=== PATIENT | female | born 1970 | race African-American/Black ===

== ENCOUNTER 2019-09-06 11:18 | Emergency (ER) | payer OTHER, SELFPAY ==
[2019-09-06 13:05] LABS: ALT/SGPT 20 U/L (12-78); AST/SGOT 12 U/L (15-37); Albumin 3.4 g/dL (3.4-5.0); Alkaline Phosphatase 71 U/L (45-117); BUN Blood Urea Nitrogen 6 mg/dL (7-18); Bicarbonate 26 mmol/L (21-32); Bilirubin Direct < 0.1 mg/dL (0-0.2); Bilirubin Total 0.4 mg/dL (0.2-1.0); Glucose Level 107 mg/dL (74-106); Lipase 50 U/L (73-393); Potassium 3.6 mmol/L (3.5-5.1); Protein, Total 7.4 g/dL (6.4-8.2); Sodium Level 139 mmol/L (136-145)
[2019-09-06 13:23] LABS: Absolute Lymphocytes (CBC) 1.8 K/uL (0.7-4.9); Lymphocytes % 38.6 % (15.3-44.8); MPV 10.5 fL (7.6-11.3); RBC Red Blood Cell Count 4.73 M/uL (3.86-4.86)
--- NOTE | 2019-09-06 14:08 | EDPHYS ---
Physician Documentation [facility] Name: Kaity Akhtar Age: 49 yrs Sex: Female : 1970 Arrival Date: 09/06/2019 Time: 11:24 Bed 13 Private MD: None, None ED Physician José Mcknight HPI: 09/05 15:54 This 49 yrs old Black Female presents to ER via Ambulatory with complaints of Body kb aches, Asthma Exacerbation. 15:54 The patient presents with abdominal pain. Onset: The symptoms/episode began/occurred kb this morning. The symptoms do not radiate. Associated signs and symptoms: Pertinent positives: sore throat, back pain, Pertinent negatives: nausea, vomiting, and diarrhea, fever. The symptoms are described as constant. Modifying factors: The symptoms are alleviated by nothing, the symptoms are aggravated by nothing. Severity of pain: At its worst the pain was moderate in the emergency department the pain is unchanged. The patient has not experienced similar symptoms in the past. The patient has not recently seen a physician. Pt reports abd pain, right mid back pain and sore throat that started this morning. denies fever, cough, shortness of breath. 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 - Social history:: Smoking status: Patient denies any tobacco usage or history of. ROS: 15:51 Neck: Negative for injury, pain, and swelling, Cardiovascular: Negative for chest pain, kb palpitations, and edema, Respiratory: Negative for shortness of breath, cough, wheezing, and pleuritic chest pain, : Negative for injury, bleeding, discharge, and swelling, MS/Extremity: Negative for injury and deformity, Skin: Negative for injury, rash, and discoloration, Neuro: Negative for headache, weakness, numbness, tingling, and seizure. 15:51 Constitutional: Positive for body aches, Negative for chills, fatigue, fever, malaise, poor PO intake, weight loss. 15:51 ENT: Positive for sore throat. 15:51 Abdomen/GI: Positive for abdominal pain, Negative for nausea, vomiting, and diarrhea, constipation. 15:51 Back: Positive for pain at rest, pain with movement, of the right mid back. Exam: 15:51 Constitutional: This is a well developed, well nourished patient who is awake, alert, kb and in no acute distress. Head/Face: Normocephalic, atraumatic. ENT: Nares patent. No nasal discharge, no septal abnormalities noted. Tympanic membranes are normal and external auditory canals are clear. Oropharynx with no redness, swelling, or masses, exudates, or evidence of obstruction, uvula midline. Mucous membranes moist. Neck: Trachea midline, no thyromegaly or masses palpated, and no cervical lymphadenopathy. Supple, full range of motion without nuchal rigidity, or vertebral point tenderness. No Meningismus. Chest/axilla: Normal chest wall appearance and motion. Nontender with no deformity. No lesions are appreciated. Cardiovascular: Regular rate and rhythm with a normal S1 and S2. No gallops, murmurs, or rubs. Normal PMI, no JVD. No pulse deficits. Respiratory: Lungs have equal breath sounds bilaterally, clear to auscultation and percussion. No rales, rhonchi or wheezes noted. No increased work of breathing, no retractions or nasal flaring. Skin: Warm, dry with normal turgor. Normal color with no rashes, no lesions, and no evidence of cellulitis. MS/ Extremity: Pulses equal, no cyanosis. Neurovascular intact. Full, normal range of motion. Neuro: Awake and alert, GCS 15, oriented to person, place, time, and situation. Cranial nerves II-XII grossly intact. Motor strength 5/5 in all extremities. Sensory grossly intact. Cerebellar exam normal. Normal gait. 15:51 Abdomen/GI: Inspection: abdomen appears normal, Bowel sounds: normal, in all quadrants, Palpation: soft, in all quadrants, mild abdominal tenderness, in all quadrants. 15:51 Back: pain, that is moderate, of the right mid back. Vital Signs: 11:33 BP 142 / 93; Pulse 85; Resp 16; Temp 97.7; Pulse Ox 100% on R/A; Weight 95.25 kg; ss Height 5 ft. 5 in. (165.10 cm); Pain 8/10; 12:37 BP 136 / 87; Pulse 75; Resp 17 S; Pulse Ox 97% on R/A; ca1 13:30 BP 125 / 85; Pulse 66; Resp 17 S; Pulse Ox 99% on R/A; ca1 11:33 Body Mass Index 34.95 (95.25 kg, 165.10 cm) ss MDM: 11:29 Patient medically screened. kb 15:53 Data reviewed: vital signs, nurses notes. Data interpreted: Pulse oximetry: on room air kb is 99 %. Interpretation: normal. Counseling: I had a detailed discussion with the patient and/or guardian regarding: the historical points, exam findings, and any diagnostic results supporting the discharge/admit diagnosis, lab results, the need for outpatient follow up, a family practitioner, to return to the emergency department if symptoms worsen or persist or if there are any questions or concerns that arise at home. 09/05 12:17 Order name: Flu; Complete Time: 13:04 kb 09/05 12:17 Order name: Strep; Complete Time: 13:04 kb 09/05 12:17 Order name: Basic Metabolic Panel; Complete Time: 13:05 kb 09/05 12:17 Order name: CBC with Diff; Complete Time: 13:30 kb 09/05 12:17 Order name: Hepatic Function; Complete Time: 13:05 kb 09/05 12:17 Order name: Lipase; Complete Time: 13:05 kb 09/05 12:17 Order name: IV Saline Lock; Complete Time: 12:38 kb 09/05 12:17 Order name: Labs collected and sent; Complete Time: 12:38 kb 09/05 13:03 Order name: Throat Culture EDMS Administered Medications: No medications were administered Disposition: 16:27 Co-signature as Attending Physician, José Mcknight MD I agree with the assessment and kdr plan of care. Disposition: 09/06/19 14:07 Discharged to Home. Impression: Generalized abdominal pain. - Condition is Stable. - Discharge Instructions: Abdominal Pain, Adult, [id number]. - Medication Reconciliation Form, Thank You Letter, Antibiotic Education, Prescription Opioid Use, Work release form form. - Follow up: Emergency Department; When: As needed; Reason: Worsening of condition. Follow up: Private Physician; When: 2 - 3 days; Reason: Recheck today's complaints, Continuance of care, Re-evaluation by your physician. Signatures: Dispatcher [employer] EDTemitope Sheppard, BRICKLAYER APPRENTICE-C BRICKLAYER APPRENTICE-Ckb José Mcknight MD MD [facility] Carol Ann Salgado RN RN ss Georgina Baird RN RN ca1 Corrections: (The following items were deleted from the chart) 14:17 14:07 09/06/2019 14:07 Discharged to Home. Impression: Generalized abdominal pain. ca1 Condition is Stable. Forms are Medication Reconciliation Form, Thank You Letter, Antibiotic Education, Prescription Opioid Use. Follow up: Emergency Department; When: As needed; Reason: Worsening of condition. Follow up: Private Physician; When: 2 - 3 days; Reason: Recheck today's complaints, Continuance of care, Re-evaluation by your physician. kb
--- NOTE | 2019-09-06 14:08 | ER ---
Nurse's Notes [facility] Name: Kaity Akhtar Age: 49 yrs Sex: Female : 1970 Arrival Date: 09/06/2019 Time: 11:24 Bed 13 Private MD: None, None Diagnosis: Generalized abdominal pain Presentation: 09/05 11:33 Chief complaint: Patient states: body aches and cough that began last night. Denies ss fever. Pt reports that she is out of her albuterol inhaler. Coronavirus screen: The patient has NOT traveled to a country currently being monitored by the [facility] within the last 14 days. Proceed with normal triage procedures. Ebola Screen: Patient denies exposure to infectious person. Patient denies travel to an Ebola-affected area in the 21 days before illness onset. Initial Sepsis Screen: Does the patient meet any 2 criteria? No. Patient's initial sepsis screen is negative. Does the patient have a suspected source of infection? No. Patient's initial sepsis screen is negative. Risk Assessment: Do you want to hurt yourself or someone else? Patient reports no desire to harm self or others. 11:33 Method Of Arrival: Ambulatory ss 11:33 Acuity: HOWARD 3 ca1 12:00 Onset of symptoms was September 06, 2019. 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 - Social history:: Smoking status: Patient denies any tobacco usage or history of. Screenin:43 Abuse screen: Denies threats or abuse. Denies injuries from another. Nutritional ca1 screening: No deficits noted. Tuberculosis screening: No symptoms or risk factors identified. Fall Risk None identified. Assessment: 11:43 General: Appears in no apparent distress. comfortable, Behavior is calm, cooperative, ca1 appropriate for age. General: Pt reports she has asthma and is out of albuterol neb and inhaler. Pain: Complains of pain in all over. Neuro: Level of Consciousness is awake, alert, obeys commands, Oriented to person, place, time, situation. Cardiovascular: Heart tones S1 S2 present Capillary refill < 3 seconds Patient's skin is warm and dry. Respiratory: Airway is patent Respiratory effort is even, unlabored, Respiratory pattern is regular, symmetrical, Breath sounds are clear bilaterally. Respiratory: Reports cough that is. GI: Abdomen is round non-distended, Bowel sounds present X 4 quads. Abd is soft and non tender X 4 quads. : No signs and/or symptoms were reported regarding the genitourinary system. EENT: No signs and/or symptoms were reported regarding the EENT system. Derm: Skin is intact, is healthy with good turgor, Skin is pink, warm \T\ dry. Musculoskeletal: Circulation, motion, and sensation intact. Capillary refill < 3 seconds. 12:37 Reassessment: Patient appears in no apparent distress at this time. Patient and/or ca1 family updated on plan of care and expected duration. Pain level reassessed. Patient is alert, oriented x 3, equal unlabored respirations, skin warm/dry/pink. 13:52 Reassessment: Patient appears in no apparent distress at this time. Patient and/or ca1 family updated on plan of care and expected duration. Pain level reassessed. Patient is alert, oriented x 3, equal unlabored respirations, skin warm/dry/pink. Vital Signs: 11:33 BP 142 / 93; Pulse 85; Resp 16; Temp 97.7; Pulse Ox 100% on R/A; Weight 95.25 kg; ss Height 5 ft. 5 in. (165.10 cm); Pain 8/10; 12:37 BP 136 / 87; Pulse 75; Resp 17 S; Pulse Ox 97% on R/A; ca1 13:30 BP 125 / 85; Pulse 66; Resp 17 S; Pulse Ox 99% on R/A; ca1 11:33 Body Mass Index 34.95 (95.25 kg, 165.10 cm) ED Course: 11:24 Patient arrived in ED. mr 11:24 None, None is Private Physician. mr 11:28 Temitope Akhtar FNP-C is [facility]. kb 11:28 José Mcknight MD is Attending Physician. kb 11:28 Georgina Baird, CLYDE is Primary Nurse. ca1 11:35 Triage completed. ss 11:36 Arm band placed on right wrist. ss 11:43 Patient has correct armband on for positive identification. Bed in low position. Call ca1 light in reach. Side rails up X 1. Pulse ox on. NIBP on. 11:43 No provider procedures requiring assistance completed. ca1 12:36 Initial lab(s) drawn, by me, sent to lab. Flu and/or RSV swab sent to lab. Strep swab ca1 sent to lab. Inserted saline lock: 20 gauge in right antecubital area, using aseptic technique. Blood collected. 14:17 IV discontinued, intact, bleeding controlled, No redness/swelling at site. Pressure ca1 dressing applied. Administered Medications: No medications were administered Outcome: 14:07 Discharge ordered by . alin 14:17 Discharged to home ambulatory, with significant other. ca1 14:17 Condition: stable 14:17 Discharge instructions given to patient, Instructed on discharge instructions, follow up and referral plans. Demonstrated understanding of instructions, follow-up care. 14:17 Patient left the ED. ca1 Signatures: Temitope Akhtar, CANE STRIPPER-C CANE STRIPPER-Carmela Paul mr Carol Ann Salgado RN RN ss Georgina Baird RN RN ca1 Corrections: (The following items were deleted from the chart) 14:13 11:33 Acuity: HOWARD 4 ss ca1
[2019-09-06 14:26] VITALS: TEMP 97.7
[2019-09-06 14:30] VITALS: BP 125/85; O2SAT 99
== END 2019-09-06 14:17 | disposition home or self-care (01) ==
LOC: ER 11:18
DX: R10.84 Generalized abdominal pain (principal)
CPT/HCPCS: 36415; 80048; 80076; 83690; 85025; 87070; 87081; 87804; 99283

== ENCOUNTER 2020-05-13 11:13 | Observation (INO) | payer OTHER ==
[2020-05-13 11:28] VITALS: BMI 32.4
[2020-05-13] MEDS ORDERED: INFLUENZA VACCINE (for 3y+) 0.5 ML DOSE IMVAC ONE (12:00)
[2020-05-13] MEDS ORDERED: HYDROMORPHONE HCL 0.5 MG/0.5 ML INJ IV PRN (12:24)
[2020-05-13] MEDS ORDERED: ALBUTEROL INHALER 60 PUFF/8 GM IH PRN (12:31)
[2020-05-13] MEDS ORDERED: GLUCAGON 1 MG/VIAL IM PRN (12:33)
[2020-05-13] MEDS ORDERED: D50W 25 GM/50 ML SYRINGE IV PRN (12:33)
[2020-05-13] MEDS ORDERED: NA CHLORIDE 0.9% 1,000 ML ONE (14:25)
--- NOTE | 2020-05-13 14:29 | P.CNS ---
Date of Consult: 05/13/20 PC: This 52-year-old female was admitted to the hospital with severe right upper quadrant abdominal pain for diagnosis and treatment. HPC: Patient has been known to have right upper quadrant pain and a workup was found have many small stones. This bout this consistent with that the pain is a right upper quadrant going into her back, describes as severe, causing lots of nausea. 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 No cough, wheeze, shortness of breath. Denies any palpitations. No urinary complaints O/E awake alert obviously uncomfortable at the moment HEENT: Nonicteric Chest: Chest movement equal bilateral ABD: Tender in right upper quadrant LOCO: Intact DATA: Ultrasound done previously demonstrates multiple gallstones IMPRESSION: Colilithiasis with biliary colic PLAN: I will take her the operating room for laparoscopic possible open cholecystectomy. We will also do a cholangiogram. The risks of this procedure have been discussed. The possibility of bleeding, infection, injury to bile ducts blood vessels intestines has been described. The possible need for an open and/or further surgeries and procedures was discussed. She understands and wants us to proceed.
[2020-05-13 14:54] LABS: Specific Gravity 1.015 (1.005-1.030)
[2020-05-13] MEDS ORDERED: SUCCINYLCHOLINE 20 MG/ML (10 ML) IV ONE (14:56)
[2020-05-13] MEDS ORDERED: propofoL 200 MG/20 ML VIAL IV ONE (15:01)
[2020-05-13] MEDS ORDERED: ROCURONIUM 50 MG/5 ML VIAL IV ONE (15:01)
[2020-05-13] MEDS ORDERED: MIDAZOLAM HCL 2 MG/2 ML INJ ONE (15:02)
[2020-05-13] MEDS ORDERED: FENTANYL CITR 250 MCG/5 ML ONE (15:02)
[2020-05-13] MEDS ORDERED: CEFOXITIN/SWI 1gm 1 GM/10 ML SYR ONE (15:17)
[2020-05-13] MEDS: Ringers Lactate 1,000 ML IV ONE ×2 (16:16→16:18)
[2020-05-13] MEDS: INSULIN -REGULAR HUMAN 50 UNIT/0.5 ML ML SQ SCH ×2 (16:30→21:00)
--- NOTE | 2020-05-13 16:30 | P.HP ---
Certification for Inpatient Patient admitted to: Observation With expected LOS: <2 Midnights Patient will require the following post-hospital care: None Practitioner: I am a practitioner with admitting privileges, knowledge of patient current condition, hospital course, and medical plan of care. 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 Past medical history of tobacco abuse and impaired fasting glucose. She started having right upper quadrant pain last week after eating some Fast food. she was started on medication for nausea and a ultrasound was ordered. She had multiple stones in her Gallbladder. Called the patient back this morning. She still was not tolerating PO food. Decision was made to direct admit the patient and keep her NPO and have her seen by surgery. Allergies No Known Drug Allergies Allergy (Verified 05/19/17 21:34) Unknown Home Medications: Albuterol Sulfate [Proair Hfa] 8.5 gm IH TID PRN #1 [email or web address] 05/21/17 Aspirin 1 tab PO DAILY 05/13/20 Cetirizine HCl [Zyrtec] 1 cap PO DAILY 05/13/20 Esomeprazole Magnesium [Nexium] 1 tab PO DAILY 05/13/20 Metformin ER [Glucophage ER*] 1 tab PO DAILY 05/13/20 - Past Medical/Surgical History Has patient received pneumonia vaccine in the past: No Diabetic: Yes -: Asthma -: Borderline diabetes -: Back surgery -: Benign tumor removed from left breast x2 Psychosocial/ Personal History: The patient is single. She has 3 children. She works at [employer]. - Family History Mother -: Heart disease, Diabetes Father -: Lung disease - Social History Smoking Status: Current every day smoker Alcohol use: No CD- Drugs: No Caffeine use: Yes Place of Residence: Home Review of Systems 10-point ROS is otherwise unremarkable Gastrointestinal: Nausea, Abdominal Pain Physical Examination - Vital Signs Temperature: 97.7 F Blood Pressure: 136/89 Pulse: 79 Respirations: 18 Pulse Ox (%): 100 - Physical Exam General: Alert, In no apparent distress HEENT: Atraumatic, PERRLA, Mucous membr. moist/pink, EOMI, Sclerae nonicteric Neck: Supple, 2+ carotid pulse no bruit, No LAD, Without JVD or thyroid abnormality Respiratory: Clear to auscultation bilaterally, Normal air movement Cardiovascular: Regular rate/rhythm, Normal S1 S2 Gastrointestinal: Normal bowel sounds, No tenderness Musculoskeletal: No tenderness Integumentary: No rashes Neurological: Normal gait, Normal speech, Normal strength at 5/5 x4 extr, Normal tone, Normal affect Lymphatics: No axilla or inguinal lymphadenopathy Assessment and Plan - Problems (Diagnosis) (1) Cholecystitis Current Visit: Yes Status: Acute Plan: She had her gallbladder removed. The patient had a large stone in the cbd. She will be kept overnight advance her diet as tolerated. Will see her in the morning (2) Tobacco abuse Current Visit: Yes Status: Acute Plan: will start her on a nicotine patch. (3) IFG (impaired fasting glucose) Current Visit: No Status: Acute Plan: Hold the metformin. Will check am labs on the patient Discharge Plan: Home Plan to discharge in: 24 Hours - Advance Directives Does patient have a Living Will: No Does patient have a Durable POA for Healthcare: No - Code Status/Comfort Care Code Status Assessed: No Code Status: Full Code Physician Review: Patient Assessed, Agree with Above Assessment and Plan Critical Care: No Time Spent Managing Pts Care (In Minutes): 70
[2020-05-13] MEDS ORDERED: NEOSTIGMINE 1 MG/ML -5 ML ONE (16:35)
[2020-05-13] MEDS ORDERED: GLYCOPYRROLATE 0.2 MG/ML SYR ONE (16:35)
--- NOTE | 2020-05-13 16:39 | P.OP ---
Preoperative diagnosis: Cholelithiasis, biliary colic Postoperative diagnosis: The same with adhesions Primary procedure: Laparoscopic cholecystectomy Secondary procedure: Attempted cholangiogram Other procedure(s): Lyses of adhesions around the liver Anesthesia: General Estimated blood loss: Since then seen Specimen: In gallbladder and contents Operative Technique: The patient brought to the operating room and placed supine on the table. After the induction of adequate general endotracheal anesthesia, there the abdomen was prepped with a DuraPrep solution, and she was draped in usual aseptic manner. A subumbilical incision was made. This was brought down through the skin and subcutaneous tissue. The Visiport was now used to enter the peritoneal cavity and created pneumoperitoneum to approximately 12 mm of mercury. Under direct vision a 5 mm tray trocar was placed in the upper midline, and 2 other 5 mm trocars on the right lateral side of the abdomen. We were able to visualize the right upper quadrant. The patient was placed in marked Trendelenburg and rolled to the left. See that there were adhesions of the omentum to the inferior edge of the right lobe of the liver. Adhesion gentle traction we were able dissect these off exposing a markedly distended gallbladder underneath. There was a thin film like area over the sole portion of the abdominal cavity. This Darren was taken down using blunt and sharp dissection to adequately expose the gallbladder and extrahepatic biliary tree. 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 Attention was turned back to the gallbladder. Applying lateral traction we were able expose the cystic duct and artery. The artery was identified. It was divided after having placed clips distally in using electro cautery. The cystic duct was now inspected. We could see that there was a large stone impacted into the cystic duct. It had dilated to approximately 6 mm in size. The portion just distal this was on normal caliber. We milked the stone back up into the gallbladder. A clip was now placed on the junction of the cystic duct a and the gallbladder. An opening was made into the cystic duct. We could see that this area is were the stone had been impacted. There was a very small outflow channel due to edema it. It was not possible to pass a cholangiocatheter through this. We tried it numerous times. At this point the cholangiogram was abandoned. 2 clips were placed distally on the cystic duct. The cystic duct was now fully transected. The gallbladder was now dissected free from the liver bed, placed into an Endo-Catch, and brought out through the umbilical trocar site. Attention was turned back up towards the liver. There were marked amount of very thick dense adhesions between the liver capsule and the anterior abdominal wall. These were relatively avascular. Using a laparoscopic Metzenbaum scissors we able to take these down. There was inspected to ensure adequate hemostasis. The patient was now placed flat on the table. Attention was turned back towards the emboli kiss. Using the Endo Close, it was possible to place 2 absorbable sutures at the level of the emboli kiss. The pneumoperitoneum was now collapsed, the trocars removed, and the sutures tied. At the end of procedure she was stable when sent to the recovery room. Needle sponge instrument count were correct. No drains were placed. Fluids & blood products: Less than 10 cc Transferred to: Recovery Room Condition: Good
[2020-05-13] MEDS ORDERED: ONDANSETRON 4 MG/2 ML VIAL IV PRN (16:46)
[2020-05-13] MEDS ORDERED: MORPHINE 4 MG/ML SYR IV PRN (16:46)
[2020-05-13] MEDS ORDERED: ENOXAPARIN 40 MG/0.4 ML SQ SCH (17:00)
[2020-05-13] MEDS ORDERED: KETOROLAC 30 MG/ML INJ ONE (17:15)
[2020-05-13] MEDS ORDERED: MORPHINE 4 MG/ML SYR ONE (17:15)
[2020-05-13] MEDS ORDERED: ONDANSETRON 4 MG/2 ML VIAL ONE (17:15)
[2020-05-13] MEDS: HYDROCODONE/APAP 7.5/325 MG TAB PO PRN (20:48)
[2020-05-14] MEDS: HYDROCODONE/APAP 7.5/325 MG TAB PO PRN (04:37)
[2020-05-14 05:58] LABS: Basophils % 0.6 % (0-1.3); Hematocrit 34.6 % (36.0-45.0); Lymphocytes % 26.9 % (15.3-44.8); MPV 9.7 fL (7.6-11.3); RBC Red Blood Cell Count 4.05 M/uL (3.86-4.86)
[2020-05-14 06:27] LABS: ALT/SGPT 29 U/L (12-78); AST/SGOT 29 U/L (15-37); Albumin 2.9 g/dL (3.4-5.0); Alkaline Phosphatase 60 U/L (45-117); BUN Blood Urea Nitrogen 4 mg/dL (7-18); Bicarbonate 29 mmol/L (21-32); Bilirubin Total 0.6 mg/dL (0.2-1.0); Glucose Level 100 mg/dL (74-106); HDL Cholesterol 30 mg/dL (40-60); LDL Cholesterol, Calculated 87 (<130); Potassium 3.5 mmol/L (3.5-5.1); Protein, Total 6.3 g/dL (6.4-8.2); Sodium Level 142 mmol/L (136-145)
[2020-05-14 06:28] LABS: Magnesium 1.4 mg/dL (1.8-2.4)
[2020-05-14] MEDS ORDERED: PANTOPRAZOLE 40MG TABLET PO SCH (06:30)
[2020-05-14] MEDS ORDERED: Magnesium Sulfate 2gm IVPB 2 G/50 ML BAG IV ONE (06:32)
[2020-05-14] MEDS: INSULIN -REGULAR HUMAN 50 UNIT/0.5 ML ML SQ SCH (07:30)
--- NOTE | 2020-05-14 08:26 | P.DS ---
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 Past medical history of tobacco abuse and impaired fasting glucose. She started having right upper quadrant pain last week after eating some Fast food. she was started on medication for nausea and a ultrasound was ordered. She had multiple stones in her Gallbladder. Called the patient back this morning. She still was not tolerating PO food. Decision was made to direct admit the patient and keep her NPO and have her seen by surgery. Hospital Course: Patient has been admitted for gallstones. The patient had an outpatient ultrasound showing multiple gallstones. The patient was admitted. Taken to surgery by Dr. Lizarraga for a lap radha. She is doing well this morning and starting to eat breakfast. She is othewise doing well. Vital Signs/Physical Exam: Temp Pulse Resp BP Pulse Ox 97.7 F 83 16 140/75 96 05/14/20 04:00 05/14/20 04:00 05/14/20 04:00 05/14/20 04:00 05/14/20 04:00 General: Alert, In no apparent distress HEENT: Atraumatic, PERRLA, EOMI Neck: Supple, JVD not distended Respiratory: Clear to auscultation bilaterally, Normal air movement Cardiovascular: Regular rate/rhythm, Normal S1 S2 Gastrointestinal: Normal bowel sounds, No tenderness Musculoskeletal: No tenderness Integumentary: No rashes Neurological: Normal speech, Normal tone, Normal affect Lymphatics: No axilla or inguinal lymphadenopathy Laboratory Data at Discharge: WBC 7.3 K/uL (4.3-10.9) 05/14/20 05:47 Hgb 11.7 g/dL (12.0-15.0) L 05/14/20 05:47 Hct 34.6 % (36.0-45.0) L 05/14/20 05:47 Plt Count 229 K/uL (152-406) 05/14/20 05:47 Sodium 142 mmol/L (136-145) 05/14/20 05:47 Potassium 3.5 mmol/L (3.5-5.1) 05/14/20 05:47 BUN 4 mg/dL (7-18) L 05/14/20 05:47 Creatinine 0.79 mg/dL (0.55-1.3) 05/14/20 05:47 Glucose 100 mg/dL (74-106) 05/14/20 05:47 Magnesium 1.4 mg/dL (1.8-2.4) L* 05/14/20 05:47 Total Bilirubin 0.6 mg/dL (0.2-1.0) 05/14/20 05:47 AST 29 U/L (15-37) 05/14/20 05:47 ALT 29 U/L (12-78) 05/14/20 05:47 Alkaline Phosphatase 60 U/L (45-117) 05/14/20 05:47 Triglycerides 99 mg/dL (<150) 05/14/20 05:47 Cholesterol 137 mg/dL (<200) 05/14/20 05:47 HDL Cholesterol 30 mg/dL (40-60) L 05/14/20 05:47 Cholesterol/HDL Ratio 4.57 05/14/20 05:47 Home Medications: Albuterol Sulfate [Proair Hfa] 8.5 gm IH TID PRN #1 [email or web address].ad 05/21/17 Aspirin 1 tab PO DAILY 05/13/20 Cetirizine HCl [Zyrtec] 1 cap PO DAILY 05/13/20 Esomeprazole Magnesium [Nexium] 1 tab PO DAILY 05/13/20 Metformin ER [Glucophage ER*] 1 tab PO DAILY 05/13/20 Diet: Regular Activity: Ad lluvia Followup: Alberto Puente MD [Primary Care Provider] - 1-2 Weeks Brando Guevara MD [ACTIVE - CAN ADMIT] - 05/21/20 Time spent managing pt's care (in minutes): 30
[2020-05-14 08:56] VITALS: BP 142/77; TEMP 97.5
[2020-05-14] MEDS ORDERED: CETIRIZINE HCL 5 MG TABLET PO SCH (09:00)
[2020-05-14] MEDS ORDERED: ASPIRIN 81 MG CHEWABLE TABLET PO SCH (09:00)
[2020-05-14 09:16] VITALS: O2SAT 98
== END 2020-05-14 09:15 | disposition home or self-care (01) ==
LOC: 2ND 11:13
PROVIDERS: ADMIT Internal Medicine; ATTEND Internal Medicine
PROC: 0FT44ZZ Resection of Gallbladder, Percutaneous Endoscopic Approach (ICD-10-PCS; principal; 2020-05-13 14:00)
DX: K80.12 Calculus of gallbladder with acute and chronic cholecystitis without obstruction (principal); E11.9 Type 2 diabetes mellitus without complications; Z79.84 Long term (current) use of oral hypoglycemic drugs; K21.9 Gastro-esophageal reflux disease without esophagitis; F17.210 Nicotine dependence, cigarettes, uncomplicated; J45.909 Unspecified asthma, uncomplicated; Z20.828 Contact with and (suspected) exposure to other viral communicable diseases
CPT/HCPCS: 85025; 36415; 83735; 81025; 80061; 82947 ×4; 88304; 83036; 80053; 94010; 47562; U0002; J2704; J0330; J2250; J3010; J3475; J2710; G0378 ×4; J7120; J7030; J2405

== ENCOUNTER 2021-06-04 11:04 | Emergency (ER) | payer OTHER ==
--- OUTSIDE RECORDS SUMMARY | 2021-06-04 11:07 | XMS REPORT | Continuity of Care Document ---
:1970 Author Organization [facility] t Address [address] [place] [address] Care Team Providers Name Role Phone ZEINA Attending Clinician Unavailable Only, Db Test Attending Clinician Unavailable Zeina DECORATOR CONSULTANT Attending Clinician Doctor Unassigned, Name Attending Clinician Unavailable Problems This patient has no known problems. Allergies, Adverse Reactions, Alerts Allergy Allergy Status Severity Reaction(s) Onset Inactive Treating Comm ents Source Name Type Date Date Clinician NO KNOWN Drug Active Univers ALLERGIE Class ity of [facility] Social History Social Habit Start Date Stop Date Quantity Comments Source Exposure to Yes [facility] SARS-CoV-2 (event) Medica l Branch Sex Assigned At [birth year] [facility] 00:00:00 00:00:00 [facility] Smoking Status Start Date Stop Date Source Unknown if ever smoked [facility] Medications This patient has no known medications. Immunizations Ordered Filled Immunization Date Status Comments Sour e Immunization Name Name SARS-COV-2 COVID-19 2020-08-29 Completed Unive rsity of SADIE/J&J VACCINE 00:00:00 [facility] SARS-COV-2 COVID-19 2020-08-29 Completed Unive rsity of SADIE/J&J VACCINE 00:00:00 [facility] SARS-COV-2 COVID-19 2020-08-29 Completed Unive rsity of SADIE/J&J VACCINE 00:00:00 [facility] Procedures This patient has no known procedures. Encounters Start End Encounter Admission Attending Care Care Encounter Source Date/Time Date/Time Type Type Clinicians Facility Department ID 2021-06-02 2021-06-02 Outpatient R ZEINA [facility] [id number] [facility] 09:30:00 11:19:47 KELSEY itrico o f [facility] 2021-06-02 2021-06-02 Laboratory Only, Ang Db Test [facility] 1.2.[address] [id number] [facility] 09:11:34 09:26:34 Only Zeina, Kelsey [facility] [id number] ity of [place] [id number] [place] PRANAY?BLEA [phone] Vt dical [address] MEDICAL OFFICE BUILDING 2021-06-02 2021-06-02 Letter Doctor TIA [id number] Univers 00:00:00 00:00:00 (Out) Unassigned, JANET [id number] ity of [facility] [id number] [place] [phone] [address] 2021-06-02 2021-06-02 Letter Doctor TIA [id number] Univers 00:00:00 00:00:00 (Out) Unassigned, JANET [id number] ity of [facility] [id number] [place] [phone] [address] Results This patient has no known results.
[2021-06-04] MEDS ORDERED: NA CHLORIDE 0.9% 250 ML ONE (13:10)
[2021-06-04] MEDS ORDERED: CASIRIVIMAB/IMDEVIMAB 10 ML VIAL ONE (13:10)
[2021-06-04] MEDS ORDERED: dexAMETHasone 10 MG/ML VIAL ONE (13:14)
--- NOTE | 2021-06-04 16:16 | ER ---
Nurse's Notes [facility] Name: Kaity Akhtar Age: 51 yrs Sex: Female : 1970 Arrival Date: 06/04/2021 Time: 11:05 Bed 9 Private MD: Alberto Puente Diagnosis: Coronavirus infection, unspecified Presentation: 06/04 11:21 Chief complaint: Patient states: Sent by Dr. Puente for Regeneron infusion, tested ll1 positive yesterday. Symptoms began Wednesday. Coronavirus screen: Vaccine status: Patient reports receiving the 2nd dose of the covid vaccine. Client denies travel out of the [place] in the last 14 days. congestion, cough unrelated to allergies, Client presents with at least one sign or symptom that may indicate coronavirus-19. Standard/surgical mask placed on the client. Ebola Screen: Patient denies travel to an Ebola-affected area in the 21 days before illness onset. Initial Sepsis Screen: Does the patient meet any 2 criteria? No. Patient's initial sepsis screen is negative. Does the patient have a suspected source of infection? No. Patient's initial sepsis screen is negative. Risk Assessment: Do you want to hurt yourself or someone else? Patient reports no desire to harm self or others. Onset of symptoms was June 02, 2021. 11:21 Method Of Arrival: Ambulatory 1 11:21 Acuity: HOWARD 3 ll1 Triage Assessment: 11:52 General: Appears in no apparent distress. Behavior is calm, cooperative, appropriate jh5 for age. Pain: Denies pain. Historical: - Allergies: 11:21 No Known Drug Allergies; ll1 - PMHx: 11:21 Asthma; initubation for respiratory distress; ll1 - PSHx: 11:21 Cholecystectomy; ll1 - Immunization history:: Client reports receiving the 2nd dose of the Covid vaccine. - Social history:: Smoking status: Patient reports the use of cigarette tobacco products, smokes one-half pack cigarettes per day. Screenin:52 Abuse screen: Denies threats or abuse. Denies injuries from another. Nutritional jh5 screening: No deficits noted. Tuberculosis screening: No symptoms or risk factors identified. Fall Risk None identified. Assessment: 11:59 Reassessment: Pt states Cindi sent her for regeneron due to her acute asthma and jh5 testing positive for covid yesterday. Pt is not having any acute respiratory symptoms. Pt states she uses her Albuterol inhaler at home and states it helps her. Pt denies pain at this time, is not currently coughing. Pt is connected to monitor with heart rate of 81 and sp02 of 100% on room air. Vital Signs: 11:21 BP 138 / 96; Pulse 80; Resp 16; Temp 98.2; Pulse Ox 100% ; Weight 90.26 kg; Height 5 ll1 ft. 5 in. (165.10 cm); Pain 8/10; 12:01 Pulse 81; Resp 16; Temp 98; Pulse Ox 100% ; jh5 15:04 BP 144 / 92; Pulse 84; Resp 18; Temp 98.2; Pulse Ox 98% ; jh5 11:21 Body Mass Index 33.11 (90.26 kg, 165.10 cm) 1 ED Course: 11:05 Patient arrived in ED. am2 11:05 Alberto Puente MD is Private Physician. am2 11:21 Arm band placed on Patient placed in an exam room, on a stretcher. 1 11:22 Mauricio Salgado PA is PHCP. [facility] 11:22 Jeovany Winters MD is Attending Physician. [facility] 11:23 Triage completed. 1 11:51 Lavonne Knutson, RN is Primary Nurse. 5 11:52 Patient has correct armband on for positive identification. Bed in low position. Call [facility] light in reach. Side rails up X 1. 13:07 Inserted saline lock: 22 gauge in left antecubital area, using aseptic technique. Blood ss collected. 16:15 Alberto Puente MD is Referral Physician. [facility] Administered Medications: 13:48 Drug: Casirivimab-Imdevimab Dose Pack 120 mg/mL-120 mg/mL (EUA) 1 application Route: 5 IV; Rate: calculated rate; Site: left antecubital; 15:03 Follow up: IV Status: Completed infusion; IV Intake: 250ml [facility] 13:48 Drug: Decadron - Dexamethasone 10 mg Route: IVP; Site: left antecubital; [facility] Intake: 15:03 IV: 250ml; Total: 250ml. [facility] Outcome: 16:15 Discharge ordered by MD. landa 16:22 Patient left the ED. jh5 Signatures: Mauircio Salgado PA PA jmm Smirch, Shelby, RN RN Erika Jolley Lynsay RN RN 1 Lavonne Knutson RN RN 5
--- NOTE | 2021-06-04 16:16 | EDPHYS ---
Physician Documentation [facility] Name: Kaity Akhtar Age: 51 yrs Sex: Female : 1970 Arrival Date: 06/04/2021 Time: 11:05 Bed 9 Private MD: Alberto Puente ED Physician Jeovany Winters HPI: 06/04 12:01 This 51 yrs old Black Female presents to ER via Ambulatory with complaints of covid+, jmm infusion. 12:01 The patient has shortness of breath at rest. Onset: The symptoms/episode began/occurred jmm gradually. Duration: The symptoms are continuous. The patient's shortness of breath is aggravated by nothing, is alleviated by nothing. 51-year-old female with history of asthma the presents emerged part with complaints of cough, congestion, shortness of breath beginning this past Wednesday. Patient tested positive outpatient for Covid.. Historical: - Allergies: 11:21 No Known Drug Allergies; ll1 - PMHx: 11:21 Asthma; initubation for respiratory distress; ll1 - PSHx: 11:21 Cholecystectomy; ll1 - Immunization history:: Client reports receiving the 2nd dose of the Covid vaccine. - Social history:: Smoking status: Patient reports the use of cigarette tobacco products, smokes one-half pack cigarettes per day. ROS: 12:01 Constitutional: Negative for fever, chills, and weight loss, Cardiovascular: Negative jmm for chest pain, palpitations, and edema. 12:01 Respiratory: Positive for cough, shortness of breath. 12:01 All other systems are negative. Exam: 12:01 Constitutional: This is a well developed, well nourished patient who is awake, alert, jmm and in no acute distress. Head/Face: atraumatic. Eyes: EOMI, no conjunctival erythema appreciated ENT: Moist Mucus Membranes Neck: Trachea midline, Supple Chest/axilla: Normal chest wall appearance and motion. Cardiovascular: Regular rate and rhythm. No edema appreciated Respiratory: Normal respirations, no respiratory distress appreciated Abdomen/GI: Non distended, soft Back: Normal ROM Skin: General appearance color normal MS/ Extremity: Moves all extremities, no obvious deformities appreciated, no edema noted to the lower extremities Neuro: Awake and alert, normal gait Psych: Behavior is normal, Mood is normal, Patient is cooperative and pleasant Vital Signs: 11:21 BP 138 / 96; Pulse 80; Resp 16; Temp 98.2; Pulse Ox 100% ; Weight 90.26 kg; Height 5 ll1 ft. 5 in. (165.10 cm); Pain 8/10; 12:01 Pulse 81; Resp 16; Temp 98; Pulse Ox 100% ; jh5 15:04 BP 144 / 92; Pulse 84; Resp 18; Temp 98.2; Pulse Ox 98% ; jh5 11:21 Body Mass Index 33.11 (90.26 kg, 165.10 cm) ll1 MDM: 12:01 Patient medically screened. [facility] 16:15 Data reviewed: vital signs, nurses notes. Counseling: I had a detailed discussion with cordell the patient and/or guardian regarding: the historical points, exam findings, and any diagnostic results supporting the discharge/admit diagnosis, lab results, radiology results, the need for outpatient follow up, to return to the emergency department if symptoms worsen or persist or if there are any questions or concerns that arise at home. ED course: Patient is alert nontoxic in appearance in the ED. No signs of respiratory distress. Patient given strict return precautions. Patient understood agrees plan of care.. 06/04 12:11 Order name: Saline Lock; Complete Time: 13:13 [facility] Administered Medications: 13:48 Drug: Casirivimab-Imdevimab Dose Pack 120 mg/mL-120 mg/mL (EUA) 1 application Route: jh5 IV; Rate: calculated rate; Site: left antecubital; 15:03 Follow up: IV Status: Completed infusion; IV Intake: 250ml [facility] 13:48 Drug: Decadron - Dexamethasone 10 mg Route: IVP; Site: left antecubital; [facility] Disposition Summary: 06/04/21 16:15 Discharge Ordered Location: Home [facility] Condition: Stable [facility] Diagnosis - Coronavirus infection, unspecified [facility] Followup: [facility] - With: Alberto Puente MD - When: 1 - 2 days - Reason: Recheck today's complaints, Continuance of care, Re-evaluation by your physician Discharge Instructions: - Discharge Summary Sheet [facility] - COVID-19 [facility] Forms: - Medication Reconciliation Form [facility] - Thank You Letter aspen - Antibiotic Education [facility] - Prescription Opioid Use [facility] Addendum: 06/07/2021 07:16 Co-signature as Attending Physician, Jeovany Winters MD I agree with the assessment and r n plan of care. Attestation: The patient's history, exam findings, diagnostics, and a summary of any interventions or procedures was reviewed in detail with Mauricio ALVA. Signatures: Mauricio Salgado PA PA jmm Nieto, Roman, MD MD rn Lewis, Lynsay RN RN ll1 Lavonne Knutson RN RN jh5
[2021-06-04 16:36] VITALS: BP 144/92; TEMP 98.2; O2SAT 98
== END 2021-06-04 16:22 | disposition home or self-care (01) ==
LOC: ER 11:04
DX: U07.1 COVID-19 (principal); J45.909 Unspecified asthma, uncomplicated; F17.210 Nicotine dependence, cigarettes, uncomplicated
CPT/HCPCS: 96365; 96375; 99283; J1100; J7050; M0243

== ENCOUNTER 2022-12-01 10:43 | Emergency (ER) | payer OTHER ==
--- OUTSIDE RECORDS SUMMARY | 2022-12-01 10:48 | XMS REPORT | Continuity of Care Document ---
:1970 Author Organization [facility] t Address [address] [facility] [place] [address] Care Team Providers Name Role Phone PCP, PATIENT DOES NOT HAVE A Primary Care Physician Unavailjoseph JEREZ Attending Clinician Unavailable KIP FISHER Attending Clinician Unavailable TONY REYES Attending Clinician Unavailable JB PASTRANA Attending Clinician Unavailable Doctor Unassigned, [facility] Attending Clinician Unavailable SOLITARIO Admitting Clinician Unavailable Problems This patient has no known problems. Allergies, Adverse Reactions, Alerts Allergy Allergy Status Severity Reaction(s) Onset Inactive Treating Comm ents Source Name Type Date Date Clinician NO KNOWN Drug Active Univers ALLERGIE Class ity of [facility] Social History Social Habit Start Date Stop Date Quantity Comments Source Exposure to Yes [facility] SARS-CoV-2 (event) Medica l Branch Sex Assigned At [birth year] [facility] 00:00:00 00:00:[address] [facility] Smoking Status Start Date Stop Date Source Unknown if ever smoked [facility] Medications This patient has no known medications. Immunizations Ordered Filled Immunization Date Status Comments Sour e Immunization Name Name SARS-COV-2 COVID-19 2020-08-29 Completed Unive rsity of SADIE/J&J VACCINE 00:00:00 [facility] SARS-COV-2 COVID-19 2020-08-29 Completed Unive rsity of SADIE/J&J VACCINE 00:00:00 [facility] Procedures This patient has no known procedures. Encounters Start End Encounter Admission Attending Care Care Encounter Source Date/Time Date/Time Type Type Clinicians Facility Department ID 2021-12-30 2021-12-30 Outpatient JONAS MEADE [id number] [place] 03:45:00 03:45:00 _[id number] 2021-10-20 2021-10-20 Outpatient [id number] 11:26:00 23:59:00 [facility] 2021-06-30 2021-06-30 Outpatient R [facility] [id number] Univers 15:30:00 15:30:00 ity [facility] 2021-06-27 2021-06-27 [facility] [id number] Univers 11:45:00 11:45:00 TONY joya [facility] 2021-06-02 2021-06-02 [facility] [id number] Univers 09:30:00 11:19:47 JB joya o f [facility] 2021-06-02 2021-06-02 Letter Doctor TIA [id number] Univers 00:00:00 00:00:00 (Out) Unassigned, JANET [id number] ity of [facility] [id number] [place] [phone] [place] [address] Branch 2021-06-02 2021-06-02 Letter Doctor TIA [id number] Univers 00:00:00 00:00:00 (Out) Unassigned, JANET [id number] ity of [facility] [id number] [place] [phone] [address] Results This patient has no known results.
[2022-12-01] MEDS ORDERED: IBUPROFEN 200 MG TAB PO ONE (11:21)
--- NOTE | 2022-12-01 12:07 | RAD REPORT ---
EXAM DESCRIPTION: RAD - Hand Left 3 View - 12/01/2022 11:58 am CLINICAL HISTORY: Left thumb pain COMPARISON: No comparisons FINDINGS/IMPRESSION: No acute fracture. No malalignment. No significant focal degenerative changes.
--- NOTE | 2022-12-01 12:34 | ER ---
Nurse's Notes [facility] Name: Kaity Akhtar Age: 52 yrs Sex: Female : 1970 Arrival Date: 12/01/2022 Time: 10:43 Bed 12 Private MD: Alberto Puente Diagnosis: Left Thumb pain Presentation: 12/01 10:53 Chief complaint: Patient states: L thumb pain and decreased ROM x 1 week, denies ph injury, no redness or swelling noted. Coronavirus screen: Vaccine status: Patient reports receiving the 2nd dose of the covid vaccine. Ebola Screen: No symptoms or risks identified at this time. Initial Sepsis Screen: Does the patient meet any 2 criteria? No. Patient's initial sepsis screen is negative. Does the patient have a suspected source of infection? No. Patient's initial sepsis screen is negative. Risk Assessment: Do you want to hurt yourself or someone else? Patient reports no desire to harm self or others. Onset of symptoms was December 01, 2022. 10:53 Method Of Arrival: Ambulatory ph 10:53 Acuity: HOWARD 4 ph Historical: - Allergies: 10:55 No Known Allergies; ph - PMHx: 10:55 Asthma; initubation for respiratory distress; ph - PSHx: 10:55 Cholecystectomy; ph - Immunization history:: Adult Immunizations unknown. - Social history:: Smoking status: Patient reports the use of cigarette tobacco products, smokes one-half pack cigarettes per day. Screenin:05 [facility] ED Fall Risk Assessment (Adult) History of falling in the last 3 months, ko1 including since admission No falls in past 3 months (0 pts) Confusion or Disorientation No (0 pts) Intoxicated or Sedated No (0 pts) Impaired Gait No (0 pts) Mobility Assist Device Used No (0 pt) Altered Elimination No (0 pt) Score/Fall Risk Level 0 - 2 = Low Risk Oriented to surroundings, Maintained a safe environment, Educated pt \T\ family on fall prevention, incl call for assistance when getting out of bed, Assessed \T\ reinforced patient's understanding of fall precautions, Provided non-skid footwear, Hourly rounding (assess needs \T\ fall precautionary measures) done, Used ambulatory aids as needed (educated on \T\ assisted with), Used gait belt as appropriate. Abuse screen: Denies threats or abuse. Denies injuries from another. Nutritional screening: No deficits noted. Tuberculosis screening: No symptoms or risk factors identified. Assessment: 11:05 General: Appears in no apparent distress. comfortable, Behavior is calm, cooperative, ko1 appropriate for age. Pain: Complains of pain in dorsal aspect of proximal phalanx of left thumb. Neuro: No deficits noted. Cardiovascular: No deficits noted. Respiratory: No deficits noted. GI: No deficits noted. : No deficits noted. EENT: No deficits noted. Derm: No deficits noted. Musculoskeletal: Reports pain in dorsal aspect of proximal phalanx of left thumb. Vital Signs: 10:53 BP 154 / 98; Pulse 74; Resp 18; Temp 98.2; Pulse Ox 100% on R/A; Weight 85.73 kg; ph Height 5 ft. 5 in. ; Pain 8/10; 10:53 Body Mass Index 31.45 (85.73 kg, 165.1 cm) ph 10:53 Pain Scale: Adult ph ED Course: 10:48 Patient arrived in ED. mr 10:48 Alberto Puente MD is Private Physician. mr 10:50 Nic Olivia DO is Attending Physician. ms3 10:55 Triage completed. ph 10:56 Bri Hennessy, RN is Primary Nurse. ko1 10:56 Arm band placed on Patient placed in an exam room. ph 11:05 Patient has correct armband on for positive identification. Bed in low position. Call ko1 light in reach. Pulse ox on. NIBP on. 11:05 No provider procedures requiring assistance completed. Patient did not have IV access ko1 during this emergency room visit. 12:00 Hand Left 3 View XRAY In Process Unspecified. EDMS 12:30 Alberto Puente MD is Referral Physician. ms3 Administered Medications: 11:15 Drug: Ibuprofen PO 600 mg Route: PO; ko1 Medication: 11:05 VIS not applicable for this client. ko1 Outcome: 12:33 Discharge ordered by . ms3 12:46 Discharged to home ambulatory. mb9 12:46 Condition: stable 12:46 Discharge instructions given to patient, Instructed on discharge instructions, follow up and referral plans. Demonstrated understanding of instructions, follow-up care. 12:46 Patient left the ED. mb9 Signatures: Dispatcher [employer] EDMS Saini Carmela mr Mario, Elma, RN RN ph Olivia, DO CLAUDIA Lucero ms3 Bri Hennessy RN RN ko1 Maria D, Carmela Kevin, CLYDE RN mb9
--- NOTE | 2022-12-01 12:34 | EDPHYS ---
Physician Documentation [facility] Name: Kaity Akhtar Age: 52 yrs Sex: Female : 1970 Arrival Date: 12/01/2022 Time: 10:43 Bed 12 Private MD: Alberto Puente ED Physician Nic Olivia HPI: 12/01 11:19 This 52 yrs old Black Female presents to ER via Ambulatory with complaints of Thumb ms3 Injury. 11:19 52-year-old female with past medical history of asthma presents for left thumb pain ms3 began 1 week prior to arrival. Patient states the pain is an 8/10. Patient denies trauma, fevers, chills, nausea, vomiting, swelling, erythema. Patient states pain is worse with movement. Patient denies alleviating factors. Historical: - Allergies: 10:55 No Known Allergies; ph - PMHx: 10:55 Asthma; initubation for respiratory distress; ph - PSHx: 10:55 Cholecystectomy; ph - Immunization history:: Adult Immunizations unknown. - Social history:: Smoking status: Patient reports the use of cigarette tobacco products, smokes one-half pack cigarettes per day. ROS: 11:19 Constitutional: Negative for fever, and chills. Neck: Negative for injury, pain, and ms3 swelling, Cardiovascular: Negative for chest pain, and palpitations. Respiratory: Negative for shortness of breath, cough, wheezing, and pleuritic chest pain, Abdomen/GI: Negative for abdominal pain, nausea, vomiting, diarrhea, and constipation. 11:19 MS/extremity: Positive for pain, of the Left thumb. Exam: 11:19 Constitutional: This is a well developed, well nourished patient who is awake, alert, ms3 and in no acute distress. Head/Face: Normocephalic, atraumatic. Neck: Trachea midline, no cervical lymphadenopathy. Supple, full range of motion without nuchal rigidity, or vertebral point tenderness. No Meningismus. Chest/axilla: Normal chest wall appearance and motion. Nontender with no deformity. Cardiovascular: Regular rate and rhythm with a normal S1 and S2. No gallops, murmurs, or rubs. Normal PMI, no JVD. No pulse deficits. Respiratory: Lungs have equal breath sounds bilaterally, clear to auscultation and percussion. No rales, rhonchi or wheezes noted. No increased work of breathing, no retractions or nasal flaring. Abdomen/GI: Soft, non-tender, with normal bowel sounds. No distension or tympany. No guarding or rebound. No evidence of tenderness throughout. 11:19 Musculoskeletal/extremity: Extremities: noted in the Left thumb: pain, tenderness. Vital Signs: 10:53 BP 154 / 98; Pulse 74; Resp 18; Temp 98.2; Pulse Ox 100% on R/A; Weight 85.73 kg; ph Height 5 ft. 5 in. ; Pain 8/10; 10:53 Body Mass Index 31.45 (85.73 kg, 165.1 cm) ph 10:53 Pain Scale: Adult ph MDM: 11:06 Patient medically screened. ms3 11:19 Differential diagnosis: closed fracture, contusion, tendonitis. ms3 12:33 Data reviewed: vital signs, nurses notes, radiologic studies, and as a result, I will ms3 discharge patient. I considered the following discharge prescriptions or medication management in the emergency department Medications were administered in the Emergency Department. See MAR. Counseling: I had a detailed discussion with the patient and/or guardian regarding: the historical points, exam findings, and any diagnostic results supporting the discharge/admit diagnosis, lab results. Response to treatment: the patient's symptoms have mildly improved after treatment, and as a result, I will discharge patient. Special discussion: I discussed with the patient/guardian in detail that at this point there is no indication for admission to the hospital. It is understood, however, that if the symptoms persist or worsen the patient needs to return immediately for re-evaluation. 12/01 11:07 Order name: Hand Left 3 View XRAY; Complete Time: 12:15 ms3 12/01 11:07 Order name: Thumb Spica Splint; Complete Time: 12:32 ms3 Administered Medications: 11:15 Drug: Ibuprofen PO 600 mg Route: PO; ko1 Disposition Summary: 12/01/22 12:33 Discharge Ordered Location: Home ms3 Condition: Stable ms3 Diagnosis - Left Thumb pain ms3 Followup: ms3 - With: Alberto Puente MD - When: 2 - 3 days - Reason: Recheck today's complaints Discharge Instructions: - Discharge Summary Sheet mb9 Forms: - Medication Reconciliation Form ms3 - Thank You Letter ms3 - Antibiotic Education ms3 - Prescription Opioid Use ms3 - Work release form mb9 Signatures: Dispatcher [employer] Elma Jones, RN RN Nic Kim DO DO ms3 Bri Hennessy RN RN ko1
[2022-12-01 12:50] VITALS: BP 154/98; TEMP 98.2; O2SAT 100
== END 2022-12-01 12:46 | disposition home or self-care (01) ==
LOC: ER 10:43
DX: M79.645 Pain in left finger(s) (principal)
CPT/HCPCS: 99284